=== PATIENT | female | born 1950 | race Caucasian/White ===

== ENCOUNTER → 2018-06-10 08:27 | Outpatient (REF) | payer MEDICARE, OTHER, SELFPAY ==
[2018-06-11 11:05] LABS: Hepatitis C Ab w Rflx HCV PCR Negative (NEGAT)
== END ==
LOC: NCHCN 08:27
PROVIDERS: PCP Internal Medicine; Visit Provider Nurse Practitioner Family
DX: L98.9 Disorder of the skin and subcutaneous tissue, unspecified (principal); Z11.59 Encounter for screening for other viral diseases
CPT/HCPCS: 86803

== ENCOUNTER → 2018-07-14 10:12 | Outpatient (BNVA) | payer MEDICARE, OTHER, SELFPAY | PROVIDERS: PCP Internal Medicine; Visit Provider Surgery | DX: L98.9 Disorder of the skin and subcutaneous tissue, unspecified (principal) | CPT/HCPCS: 99212 ==

== ENCOUNTER 2018-07-29 07:21 | Day surgery (SDC) | payer MEDICARE, OTHER, SELFPAY ==
[2018-07-29 07:37] VITALS: BP 113/60; PULSE 76; RESP 16; TEMP 36.6; O2SAT 99
--- NOTE | 2018-07-29 08:57 | W.PM.DSUDISC ---
Discharge Plan Disposition Patient Disposition: HOME Condition: Good Discharge Details Attending Provider: Adin Bernard Primary Care Provider: Jignesh Soares Home Meds and New Rx's Prescriptions: Continue multivitamin [Daily Multi-Vitamin] 1 EACH tablet 1 ea PO DAILY RF: 0 progesterone micronized [Prometrium] 100 MG capsule 100 mg PO EVERY OTHER DAY Qty: 45 RF: 3 conjugated estrogens [Premarin] 0.3 MG tablet 0.3 mg PO EVERY OTHER DAY Qty: 45 RF: 3 Discharge Instructions Instructions: Care For Your Absorbable Stitches (DC) Referrals: Adin Bernard DO [ [facility] STAFF PHYSICIAN] - 08/04/18 1:45 pm (Follow up after excision of neck lesion) Activity:: Activity as Tolerated Remove Dressings/Wound Care:: 24 hours Shower/Bathe:: 24 hours Diet:: As Tolerated Discharge Orders Discharge Orders: Discharge Order (Routine); Ordered 07/29/18 Ordered By: Adin Bernard DS: Diagnosis Discharge Diagnosis (1) Skin lesion of neck: Start date: 07/29/18 Start time: 08:57 Status: Acute Asessment and Plan: Plan for excision under local of neoplasm at base of anterior neck.
--- NOTE | 2018-07-29 09:01 | PDOC.DSDIS_ITS ---
Discharge Plan Disposition Patient Disposition: HOME Condition: Good Discharge Details Attending Provider: Adin Bernard Primary Care Provider: Jignesh Soares Home Meds and New Rx's Prescriptions: Continue multivitamin [Daily Multi-Vitamin] 1 EACH tablet 1 ea PO DAILY RF: 0 progesterone micronized [Prometrium] 100 MG capsule 100 mg PO EVERY OTHER DAY Qty: 45 RF: 3 conjugated estrogens [Premarin] 0.3 MG tablet 0.3 mg PO EVERY OTHER DAY Qty: 45 RF: 3 Discharge Instructions Instructions: Care For Your Absorbable Stitches (DC) Referrals: Adin Bernard DO [ [facility] STAFF PHYSICIAN] - 08/04/18 1:45 pm (Follow up after excision of neck lesion) Activity:: Activity as Tolerated Remove Dressings/Wound Care:: 24 hours Shower/Bathe:: 24 hours Diet:: As Tolerated Discharge Orders Discharge Orders: Discharge Order (Routine); Ordered 07/29/18 Ordered By: Adin Bernard DS: Diagnosis Discharge Diagnosis (1) Skin lesion of neck: Start date: 07/29/18 Start time: 08:57 Status: Acute Asessment and Plan: Plan for excision under local of neoplasm at base of anterior neck.
--- NOTE | 2018-07-29 09:03 | ROE_ITS ---
Date of service: 07/29/18 Time of Service: 09:01 Operative Note DATE OF PROCEDURE: 07/29/18 PRE-OP DIAGNOSIS: Neoplasm of the skin of the neck POST-OP DIAGNOSIS: same PROCEDURE: Excision lesion of the neck SURGEON: Adin Bernard GROUP DIRECTOR EXPERIENCE: Glo Deshpande ANESTHESIA: local (1% lidocaine and 0.5% marcaine with epinephrine) ESTIMATED BLOOD LOSS: 1 PATHOLOGY: other (Skin lesion of the neck single tail left, double tail cephalad.) COMPLICATIONS: None Patient was transported to: same day Patient's condition: stable Indications: 68 y/o female presents today with complaints of a skin lesion at the base of her neck since December 2017. She reports that she had gone to her PCP and received cryotherapy in February 2018 with out any change in the lesion. She reports that the area has had a scab on it, which fell off 2 days ago in the shower. She denies any itching, bleeding or discharge from the area. She denies any changes in size, shape, or character of the lesion since February 2018. It was recommended that this be removed under local anesthesia. Findings: A less than 1 cm in greatest diameter lesion was excised from the base of the neck. An ellipse measuring 3.5 cm x 1.5 cm, oriented long axis transverse, was made around the lesion and excised, using sharp dissection, and electrocautery for hemostasis Procedure Description: The patient was brought to the operating room after the lesion was marked. She was positioned supine with all bony prominences padded. An appropriate timeout was taken reviewing the patient's identification, procedure, site, allergies, and medications. The anterior neck and chest were prepped with ChloraPrep block draped in standard sterile fashion. An ellipse was drawn around the lesion measuring 3.5 cm x 1.5 cm in greatest diameter. Local was infiltrated around the lesion over the area of the ellipse 15 blade scalpel was then used to incise the perimeter of the ellipse down to the subcutaneous tissue. Cautery was then used to divide the subcutaneous tissue. Hemostasis was then obtained with cautery. The specimen was then passed off for pathology after it was marked with a single tail indicating the left side, and a double tail indicating cephalad. The subcutaneous tissue was then approximated using inverted stitches of 3-0 Vicryl. Skin was closed using 4-0 Vicryl suture in a running subcuticular fashion. Skin affix skin glue was then applied to the wound, and a dry sterile dressing was placed over wound once the glue dried. There are no complications during the case. The patient tolerated the procedure well. She was returned to the day surgery recovery area in good condition. All counts were reported as correct x2
[2018-07-29] MEDS: Lidocaine 1% Pres-Free 5 ML VIAL (09:30)
--- NOTE | 2018-07-29 09:35 | SKI_PTH ---
PATIENT: Iwona Romero LOC: [facility] U#:[id number] AGE/SX: 68/F ROOM: RE07/29/[address]: Adin Bernard DO : 1950 BED: DIS: 07/29/2018 SPEC #: [id number] RECD: 07/29/18 12:48 STATUS: ESTEE REBilly #: [id number] ANAYELI: 07/29/18 09:[address]: Adin Bernard DEPT: Surgical Specimen RECD BY: Rebecca Laureano ENTERED: 07/29/18 12:49 SP TYPE: SKI OTHR DR: Jignesh Soares Tissues: 1 - SKIN BIOPSY(SHAVE/PUNCH) Procedures: SKIN LEVEL 4 Comments: [id number] (SINGLE TAIL-LEFT; DOUBLE TAIL-CEPHALAD)
== END 2018-07-29 10:25 | disposition home or self-care (01) ==
PROVIDERS: PCP Internal Medicine; Visit Provider Surgery
PROC: 0HB1XZZ Excision of Face Skin, External Approach (ICD-10-PCS; CPT 11623; principal; 2018-07-29 09:00)
DX: C44.41 Basal cell carcinoma of skin of scalp and neck (principal)
CPT/HCPCS: 11623; 12042; 88305

== ENCOUNTER → 2018-07-29 07:53 | Outpatient (BNVA) | payer MEDICARE, OTHER, SELFPAY | PROVIDERS: PCP Internal Medicine; Referring Provider Internal Medicine; Visit Provider Surgery | DX: R69 Illness, unspecified (principal) ==

== ENCOUNTER → 2018-08-04 13:15 | Outpatient (BNVA) | payer MEDICARE, OTHER, SELFPAY | PROVIDERS: PCP Internal Medicine; Referring Provider Internal Medicine; Visit Provider Surgery | DX: Z48.89 Encounter for other specified surgical aftercare (principal); L98.9 Disorder of the skin and subcutaneous tissue, unspecified ==

== ENCOUNTER 2019-05-05 00:18 | Outpatient (CLI) | payer MEDICARE, OTHER, SELFPAY ==
--- NOTE | 2019-05-05 10:38 | DI.MAMMO_ITS ---
SYMPTOM/DIAGNOSIS: SCREENING, Z12.39 MAMMOGRAM: 05/05/19 Mammograms were interpreted according to the usual protocol including computer analysis with CAD system, tomosynthesis and C view imaging. The breasts are heterogeneously dense. No dominant mass or clumped microcalcification is identified in either breast. Well circumscribed nodule of the lateral aspect of the right breast appears unchanged in comparison with previous examinations. Examination is compared with the previous examinations including July 2017 and there has been no gross interval change in appearance. CONCLUSION: No specific evidence of malignancy at this time. Routine screening examinations are suggested at yearly intervals due to the family history of breast carcinoma. Category 1. Breast density category C. MQSA ASSESSMENT OF FINDINGS: Negative. Category 1. Patient will receive a letter notifying them of these results. Bi-RADS category C. The breasts are heterogeneously dense, which may obscure small masses.
== END 2019-05-05 00:38 ==
PROVIDERS: PCP Internal Medicine; Visit Provider Nurse Practitioner Family
DX: Z12.31 Encounter for screening mammogram for malignant neoplasm of breast (principal); Z80.3 Family history of malignant neoplasm of breast
CPT/HCPCS: 77063; 77067

== ENCOUNTER 2020-07-14 01:18 | Outpatient (CLI) | payer MEDICARE, OTHER, SELFPAY ==
--- NOTE | 2020-07-14 | DI.MAMMO_ITS ---
EXAM: MG MAMMO SCREENING CLINICAL HISTORY: SCREENING,Z12.39 TECHNIQUE: Mammograms were interpreted according to the usual protocol including computer analysis w [employer] CAD system, tomosynthesis and C-view imaging. COMPARISON: FINDINGS: The breasts are heterogeneously dense. No dominant mass or clumped microcalcification is identified in either breast. The current examination is compared with previous examinations including April 2019 and there has been no gross interval change in appearance comparison with previous studies. IMPRESSION: No specific evidence of malignancy at this time. Routine screening examinations are suggested at yea rly intervals due to the family history of breast carcinoma. BI-RADS Cat 1 - Negative Breast Density - Category C - Heterogeneously dense
== END 2020-07-14 01:38 ==
PROVIDERS: PCP Internal Medicine; Visit Provider Nurse Practitioner Family
DX: Z12.31 Encounter for screening mammogram for malignant neoplasm of breast (principal)
CPT/HCPCS: 77063; 77067

== ENCOUNTER 2021-06-27 17:28 | Outpatient (REF) | payer MEDICARE, OTHER, SELFPAY ==
[2021-06-27 21:25] LABS: Calculated LDL 175 mg/dL (<100); Cholesterol 274 mg/dL (<200); HDL Cholesterol 80 mg/dL (40-60); Triglyceride 98 mg/dL (<150)
== END 2021-06-27 17:29 | disposition home or self-care (01) ==
LOC: NCHCN 17:28
PROVIDERS: PCP Internal Medicine; Visit Provider Nurse Practitioner Family
DX: Z00.00 Encounter for general adult medical examination without abnormal findings (principal); E78.5 Hyperlipidemia, unspecified
CPT/HCPCS: 80061; 83036

== ENCOUNTER 2021-07-20 00:31 | Outpatient (CLI) | payer MEDICARE, OTHER, SELFPAY ==
--- NOTE | 2021-07-20 | DI.MAMMO_ITS ---
Exam(s) MAMMO SCREENING EXAM: MAMMO SCREENING CLINICAL HISTORY: SCREENING,Z12.31. TECHNIQUE: Bilateral full field digital CC and MLO mammographic images were obtained with 3D tomosyn thesis and utilizing computer aided detection (CAD). COMPARISON: Prior mammograms dating back to 2011, the most recent being June 2020. FINDINGS: The fibroglandular tissue pattern is again noted be moderately dense. No new significant radiograph findings in left breast In the anterior aspect of the right breast there is an asymmetric density in the immediate retroareol ar region. Spot compression view recommended. Also possible ultrasound. Benign-appearing microcalcifications are noted in both breasts. No new architectural distortion or skin thickening-traction IMPRESSION: No radiographic evidence of malignancy in left breast. Asymmetric density-possible nodule in the immediate retroareolar region of the right breast. Spot co mpression view and possible ultrasound recommended BI-RADS Category 0 - Assessment Incomplete: Need additional imaging evaluation Breast Density - Category C - Heterogeneously dense Breast density Category C or D implies that the patient has dense breast tissue. Dense breast tissue can make it harder to find cancer on a mammogram. Dense breast tissue is also associated with an incr eased risk of breast cancer. This information about the result of the mammogram report was provided to the patient to raise their awareness. Use this report when you speak with the patient about their risks for breast cancer, which includes their family history. At that time, you may recommend additional screening tests (Ultrasoun d or MRI) as these tests may add significant information. A negative radiographic report should not delay biopsy if a dominant or clinically suspicious mass is present. Up to ten percent of cancers are not identified on mammography. A negative report may reinforce clinical impression. Adenosis and dense breasts may obscure an underlying neoplasm. False positive reports average 6 to 10%. Patient will receive a letter notifying them of these results.
== END 2021-07-20 00:51 ==
PROVIDERS: PCP Internal Medicine; Visit Provider Nurse Practitioner Family
DX: Z12.31 Encounter for screening mammogram for malignant neoplasm of breast (principal); R92.8 Other abnormal and inconclusive findings on diagnostic imaging of breast
CPT/HCPCS: 77063; 77067

== ENCOUNTER → 2022-07-16 02:34 | Outpatient (CLI) | payer MEDICARE, SELFPAY ==
--- NOTE | 2022-07-16 09:00 | DI.MAMMO_ITS ---
Exam(s) MAMMO SCREENING EXAM: MAMMO SCREENING CLINICAL HISTORY: SCREENING FOR BREAST CANCER Z12.31 TECHNIQUE: Mammograms were interpreted according to the usual protocol including computer analysis w [employer] CAD system, tomosynthesis and C-view imaging. COMPARISON: 2012 through 2020 FINDINGS: The breasts are composed of scattered fibroglandular densities, Breast Density category B. No suspicious masses or suspicious microcalcifications are seen. No skin thickening or abnormal axillary lymph nodes are seen. There has been no significant change from prior exams. IMPRESSION: BI-RADS Category 1, Negative mammogram Yearly screening mammography is recommended. Breast Density - Category B, scattered fibroglandular densities. A negative radiographic report should not delay biopsy if a dominant or clinically suspicious mass is present. Up to ten percent of cancers are not identified on mammography. A negative report may reinforce clinical impression. Adenosis and dense breasts may obscure an underlying neoplasm. False positive reports average 6 to 10%. Patient will receive a letter notifying them of these results.
== END ==
PROVIDERS: PCP Internal Medicine; Visit Provider Nurse Practitioner Family
DX: Z12.31 Encounter for screening mammogram for malignant neoplasm of breast (principal)
CPT/HCPCS: 77063; 77067